=== PATIENT | female | born 1990 | race African-American/Black ===

== ENCOUNTER 2020-09-28 09:45 | Inpatient (IN) | payer OTHER ==
[2020-09-28 11:32] VITALS: BMI 30.1
[2020-09-28 12:10] LABS: CHLORIDE 99 mmol/L (98-107); SODIUM 139 mmol/L (136-145)
[2020-09-28 12:12] LABS: CALCIUM 7.9 mg/dL (8.5-10.1); GLUCOSE,RANDOM 107 mg/dL (74-106)
[2020-09-28 12:13] LABS: ALBUMIN 4.3 g/dl (3.4-5.0); ANION GAP 13 MMOL/L (8-16); BLOOD UREA NITROGEN 5.7 mg/dL (7-18); CO2 27 mmol/L (21-32)
[2020-09-28 12:17] LABS: BILIRUBIN,TOTAL 1.3 mg/dL (0.2-1); SGOT/AST 130 U/L (15-37); SGPT/ALT 143 U/L (13-61)
[2020-09-28 12:18] LABS: ALK PHOS 72 U/L (45-117); TOT PROT 7.7 g/dl (6.4-8.2)
[2020-09-28] MEDS ORDERED: MAG HYDROX/AL HYDROX/SIMETH 30 ML UNIT-DOSE CUP PO PRN (14:08)
[2020-09-28] MEDS ORDERED: BISMUTH SUBSALICYLATE 524 MG/30 ML PO PRN (14:08)
[2020-09-28] MEDS ORDERED: MAGNESIUM CITRATE 300 ML BOTTLE PO PRN (14:08)
[2020-09-28] MEDS ORDERED: IBUPROFEN 400 MG TABLET (FP) PO PRN (14:08)
[2020-09-28] MEDS ORDERED: NICOTINE 10 MG CARTRIDGE (INHALER) IH PRN (14:08)
[2020-09-28] MEDS ORDERED: MENTHOL/PHENOL 1 EACH UD MM PRN (14:08)
[2020-09-28] MEDS ORDERED: MAGNESIUM HYDROX 2400MG/30ML ORAL SUSPENSION 30 ML CUP PO PRN (14:08)
[2020-09-28] MEDS ORDERED: METHOCARBAMOL 500 MG TABLET PO PRN (14:08)
[2020-09-28 14:48] LABS: HEMATOCRIT 37.7 % (32.4-45.2); HEMOGLOBIN 12.5 GM/dL (10.7-15.3); MCH 24.6 pg (25.7-33.7); MEAN CELL VOLUME 74.7 fl (80-96); MEAN PLT VOLUME 9.3 fl (7.5-11.1); PLATELET COUNT 213 10^3/uL (134-434); RBC 5.05 M/mm3 (3.60-5.2); RDW 15.7 % (11.6-15.6); WHITE BLOOD COUNT 4.6 K/mm3 (4.0-10.0)
[2020-09-28] MEDS: POTASSIUM CHLORIDE TABS 20 MEQ TABLET.ER (FP) PO SCH ×2 (15:19→22:29)
[2020-09-28] MEDS: diazePAM 5 MG TABLET PO PRN (15:32)
[2020-09-28] MEDS ORDERED: hydrOXYzine PAMOATE 25 MG CAPSULE (FP) PO SCH (18:00)
[2020-09-28] MEDS: ONDANSETRON *ODT* 4 MG TABLET SL PRN (18:37)
[2020-09-28] MEDS: diazePAM 5 MG TABLET PO SCH ×2 (18:38→22:30)
[2020-09-28] MEDS: THIAMINE HCL 100 MG TABLET (FP) PO SCH (22:29)
[2020-09-28] MEDS: MELATONIN 5 MG TABLETS PO SCH (22:29)
[2020-09-29] MEDS: diazePAM 5 MG TABLET PO SCH ×4 (05:46→22:13)
[2020-09-29] MEDS: PRENATAL VITAMINS W/ FOLIC ACID TABLET (FP) PO SCH (10:13)
[2020-09-29 12:34] LABS: HEMATOCRIT 35.7 % (32.4-45.2); HEMOGLOBIN 11.8 GM/dL (10.7-15.3); MCHC 33.2 g/dl (32.0-36.0); MEAN CELL VOLUME 75.5 fl (80-96); MEAN PLT VOLUME 9.4 fl (7.5-11.1); PLATELET COUNT 182 10^3/uL (134-434); RBC 4.72 M/mm3 (3.60-5.2); RDW 15.6 % (11.6-15.6); WHITE BLOOD COUNT 2.5 K/mm3 (4.0-10.0)
[2020-09-29 12:40] LABS: ALBUMIN 3.7 g/dl (3.4-5.0); BLOOD UREA NITROGEN 4.2 mg/dL (7-18); CALCIUM 7.6 mg/dL (8.5-10.1)
[2020-09-29 12:45] LABS: BILIRUBIN,TOTAL 1.3 mg/dL (0.2-1); TOT PROT 6.8 g/dl (6.4-8.2)
[2020-09-29] MEDS: THIAMINE HCL 100 MG TABLET (FP) PO SCH (22:13)
[2020-09-29] MEDS: MELATONIN 5 MG TABLETS PO SCH (22:13)
[2020-09-30] MEDS: diazePAM 5 MG TABLET PO SCH ×3 (06:27→23:09)
[2020-09-30] MEDS: PRENATAL VITAMINS W/ FOLIC ACID TABLET (FP) PO SCH (10:05)
[2020-09-30] MEDS: diazePAM 5 MG TABLET PO PRN ×2 (10:06→20:51)
[2020-09-30] MEDS ORDERED: POTASSIUM CHLORIDE TABS 20 MEQ TABLET.ER (FP) PO ONE (12:35)
[2020-09-30] MEDS: hydrOXYzine PAMOATE 25 MG CAPSULE (FP) PO PRN (20:52)
[2020-09-30] MEDS: MELATONIN 5 MG TABLETS PO SCH (22:08)
[2020-09-30] MEDS: THIAMINE HCL 100 MG TABLET (FP) PO SCH (22:09)
[2020-10-01] MEDS: diazePAM 5 MG TABLET PO SCH ×2 (06:19→17:39)
[2020-10-01] MEDS: diazePAM 5 MG TABLET PO PRN (10:20)
[2020-10-01] MEDS: SERTRALINE HCL 50 MG TABLET (FP) PO SCH (10:20)
[2020-10-01] MEDS: PRENATAL VITAMINS W/ FOLIC ACID TABLET (FP) PO SCH (10:20)
[2020-10-01] MEDS ORDERED: MIRTAZAPINE 15 MG TABLET (FP) PO SCH (22:00)
[2020-10-01] MEDS: THIAMINE HCL 100 MG TABLET (FP) PO SCH (22:09)
[2020-10-01] MEDS: MELATONIN 5 MG TABLETS PO SCH (22:10)
[2020-10-01] MEDS: hydrOXYzine PAMOATE 25 MG CAPSULE (FP) PO PRN (22:11)
[2020-10-02] MEDS ORDERED: diazePAM 5 MG TABLET PO ONE (06:00)
[2020-10-02] MEDS: PRENATAL VITAMINS W/ FOLIC ACID TABLET (FP) PO SCH (09:55)
[2020-10-02] MEDS: SERTRALINE HCL 50 MG TABLET (FP) PO SCH (09:56)
[2020-10-02] MEDS: ONDANSETRON *ODT* 4 MG TABLET SL PRN (09:56)
[2020-10-02 12:54] VITALS: BP 118/83; PULSE 64; TEMP 96.4
== END 2020-10-02 14:25 | disposition other institution (70) | DRG 775 ==
LOC: YASAS 09:45 → Y3N 14:13
PROVIDERS: ADMIT Allergy & Immunology; ATTEND Allergy & Immunology
PROC: HZ2ZZZZ Detoxification Services for Substance Abuse Treatment (ICD-10-PCS; principal; 2020-09-28)
DX: F10.230 Alcohol dependence with withdrawal, uncomplicated (principal); F17.210 Nicotine dependence, cigarettes, uncomplicated; F41.9 Anxiety disorder, unspecified; F32.9 Major depressive disorder, single episode, unspecified; F43.10 Post-traumatic stress disorder, unspecified; R74.01 Elevation of levels of liver transaminase levels; Z62.810 Personal history of physical and sexual abuse in childhood; Z86.69 Personal history of other diseases of the nervous system and sense organs; Z56.0 Unemployment, unspecified; Z59.0 Homelessness
CPT/HCPCS: 36415; 70450-TC; 72125-TC; 73030-TC-LT-FY; 80053; 84702; 84703; 85027; 86780; 93005; 93010; C9803; Q0162; U0003; U0005

== ENCOUNTER 2020-10-02 14:29 | Inpatient (IN) | payer OTHER ==
[2020-10-02] MEDS ORDERED: MAGNESIUM HYDROX 2400MG/30ML ORAL SUSPENSION 30 ML CUP PO PRN (15:18)
[2020-10-02] MEDS ORDERED: MAGNESIUM CITRATE 300 ML BOTTLE PO PRN (15:18)
[2020-10-02] MEDS ORDERED: guaiFENesin 200 MG/10 ML 10 ML UNIT-DOSE CUPS PO PRN (15:18)
[2020-10-02] MEDS ORDERED: P-EPHED 60MG/TRIPROLIDI 2.5MG TABLET PO PRN (15:18)
[2020-10-02] MEDS ORDERED: LOPERAMIDE HCL 2 MG CAPSULE PO PRN (15:18)
[2020-10-02] MEDS ORDERED: ACETAMINOPHEN 325 MG TABLET (FP) PO PRN (15:18)
[2020-10-02] MEDS ORDERED: MENTHOL/PHENOL 1 EACH UD MM PRN (15:18)
[2020-10-02] MEDS ORDERED: MAG HYDROX/AL HYDROX/SIMETH 30 ML UNIT-DOSE CUP PO PRN (15:18)
[2020-10-02] MEDS: MELATONIN 5 MG TABLETS PO SCH (21:10)
[2020-10-02] MEDS: hydrOXYzine PAMOATE 25 MG CAPSULE (FP) PO PRN (21:10)
[2020-10-02] MEDS: THIAMINE HCL 100 MG TABLET (FP) PO SCH (21:10)
[2020-10-02] MEDS ORDERED: MIRTAZAPINE 15 MG TABLET (FP) PO SCH (22:00)
[2020-10-03] MEDS: hydrOXYzine PAMOATE 25 MG CAPSULE (FP) PO PRN (09:36)
[2020-10-03] MEDS: PRENATAL VITAMINS W/ FOLIC ACID TABLET (FP) PO SCH (09:36)
[2020-10-03] MEDS: NICOTINE 7 MG/24 HOURS TOPICAL PATCH TD SCH (09:37)
[2020-10-03] MEDS ORDERED: SERTRALINE HCL 50 MG TABLET (FP) PO SCH (10:00)
[2020-10-03] MEDS: GABAPENTIN 100 MG CAPSULE PO SCH (12:20)
[2020-10-03] MEDS: THIAMINE HCL 100 MG TABLET (FP) PO SCH (21:16)
[2020-10-03] MEDS: MIRTAZAPINE 30 MG TABLET PO SCH (21:16)
[2020-10-03] MEDS: MELATONIN 5 MG TABLETS PO SCH (21:16)
[2020-10-04] MEDS: PRENATAL VITAMINS W/ FOLIC ACID TABLET (FP) PO SCH (09:49)
[2020-10-04] MEDS: GABAPENTIN 100 MG CAPSULE PO SCH (09:49)
[2020-10-04] MEDS: hydrOXYzine PAMOATE 25 MG CAPSULE (FP) PO PRN (09:50)
[2020-10-04] MEDS: NICOTINE 7 MG/24 HOURS TOPICAL PATCH TD SCH (09:50)
[2020-10-04] MEDS: SERTRALINE HCL 50 MG TABLET (FP) PO SCH (09:50)
[2020-10-04] MEDS: MELATONIN 5 MG TABLETS PO SCH (21:18)
[2020-10-04] MEDS: MIRTAZAPINE 30 MG TABLET PO SCH (21:18)
[2020-10-04] MEDS: THIAMINE HCL 100 MG TABLET (FP) PO SCH (21:18)
[2020-10-05] MEDS: PRENATAL VITAMINS W/ FOLIC ACID TABLET (FP) PO SCH (09:47)
[2020-10-05] MEDS: SERTRALINE HCL 50 MG TABLET (FP) PO SCH (09:47)
[2020-10-05] MEDS: GABAPENTIN 100 MG CAPSULE PO SCH (09:47)
[2020-10-05] MEDS: NICOTINE 7 MG/24 HOURS TOPICAL PATCH TD SCH (09:48)
[2020-10-05 13:54] LABS: BASO % 1.3 % (0-2.0); EOS % 1.8 % (0-4.5); HEMATOCRIT 32.9 % (32.4-45.2); HEMOGLOBIN 10.8 GM/dL (10.7-15.3); LYMPH % 45.2 % (8-40); MCH 25.1 pg (25.7-33.7); MCHC 32.7 g/dl (32.0-36.0); MEAN CELL VOLUME 76.8 fl (80-96); MEAN PLT VOLUME 9.1 fl (7.5-11.1); MONO % 7.3 % (3.8-10.2); NEUT % 44.4 % (42.8-82.8); PLATELET COUNT 232 10^3/uL (134-434); RBC 4.28 M/mm3 (3.60-5.2); WHITE BLOOD COUNT 4.3 K/mm3 (4.0-10.0)
[2020-10-05 14:23] LABS: ALBUMIN 3.7 g/dl (3.4-5.0); BLOOD UREA NITROGEN 11.3 mg/dL (7-18)
[2020-10-05 14:26] LABS: CREATININE 0.9 mg/dL (0.55-1.3)
[2020-10-05 14:28] LABS: BILIRUBIN,TOTAL 0.9 mg/dL (0.2-1)
[2020-10-05 14:31] LABS: TOT PROT 6.9 g/dl (6.4-8.2)
[2020-10-05] MEDS: MIRTAZAPINE 30 MG TABLET PO SCH (21:45)
[2020-10-05] MEDS: THIAMINE HCL 100 MG TABLET (FP) PO SCH (21:45)
[2020-10-05] MEDS: MELATONIN 5 MG TABLETS PO SCH (21:45)
[2020-10-06] MEDS: GABAPENTIN 100 MG CAPSULE PO SCH (10:25)
[2020-10-06] MEDS: NICOTINE 7 MG/24 HOURS TOPICAL PATCH TD SCH (10:26)
[2020-10-06] MEDS: PRENATAL VITAMINS W/ FOLIC ACID TABLET (FP) PO SCH (10:26)
[2020-10-06] MEDS: SERTRALINE HCL 50 MG TABLET (FP) PO SCH (10:26)
[2020-10-06] MEDS: BACITRACIN 0.9 GM PACKET TP SCH (16:59)
[2020-10-06] MEDS: MIRTAZAPINE 30 MG TABLET PO SCH (21:59)
[2020-10-06] MEDS: THIAMINE HCL 100 MG TABLET (FP) PO SCH (21:59)
[2020-10-06] MEDS: MELATONIN 5 MG TABLETS PO SCH (22:00)
[2020-10-07] MEDS: PRENATAL VITAMINS W/ FOLIC ACID TABLET (FP) PO SCH (10:44)
[2020-10-07] MEDS: SERTRALINE HCL 50 MG TABLET (FP) PO SCH (10:44)
[2020-10-07] MEDS: GABAPENTIN 100 MG CAPSULE PO SCH (10:44)
[2020-10-07] MEDS: BACITRACIN 0.9 GM PACKET TP SCH (10:45)
[2020-10-07] MEDS: NICOTINE 7 MG/24 HOURS TOPICAL PATCH TD SCH (10:45)
[2020-10-07] MEDS: MELATONIN 5 MG TABLETS PO SCH (21:44)
[2020-10-07] MEDS: MIRTAZAPINE 30 MG TABLET PO SCH (21:44)
[2020-10-07] MEDS: THIAMINE HCL 100 MG TABLET (FP) PO SCH (21:44)
[2020-10-08] MEDS: GABAPENTIN 100 MG CAPSULE PO SCH (10:39)
[2020-10-08] MEDS: NICOTINE 7 MG/24 HOURS TOPICAL PATCH TD SCH (10:40)
[2020-10-08] MEDS: hydrOXYzine PAMOATE 25 MG CAPSULE (FP) PO PRN (10:40)
[2020-10-08] MEDS: PRENATAL VITAMINS W/ FOLIC ACID TABLET (FP) PO SCH (10:40)
[2020-10-08] MEDS: SERTRALINE HCL 50 MG TABLET (FP) PO SCH (10:40)
[2020-10-08] MEDS: BACITRACIN 0.9 GM PACKET TP SCH (10:41)
[2020-10-08] MEDS: MIRTAZAPINE 30 MG TABLET PO SCH (22:10)
[2020-10-08] MEDS: THIAMINE HCL 100 MG TABLET (FP) PO SCH (22:10)
[2020-10-08] MEDS: MELATONIN 5 MG TABLETS PO SCH (22:10)
[2020-10-09] MEDS: GABAPENTIN 100 MG CAPSULE PO SCH (10:57)
[2020-10-09] MEDS: BACITRACIN 0.9 GM PACKET TP SCH (10:57)
[2020-10-09] MEDS: SERTRALINE HCL 50 MG TABLET (FP) PO SCH (10:58)
[2020-10-09] MEDS: NICOTINE 7 MG/24 HOURS TOPICAL PATCH TD SCH (10:58)
[2020-10-09] MEDS: PRENATAL VITAMINS W/ FOLIC ACID TABLET (FP) PO SCH (10:58)
[2020-10-09] MEDS: hydrOXYzine PAMOATE 25 MG CAPSULE (FP) PO PRN ×2 (10:58→21:17)
[2020-10-09] MEDS: THIAMINE HCL 100 MG TABLET (FP) PO SCH (21:17)
[2020-10-09] MEDS: MELATONIN 5 MG TABLETS PO SCH (21:17)
[2020-10-09] MEDS: MIRTAZAPINE 30 MG TABLET PO SCH (21:17)
[2020-10-09] MEDS: IBUPROFEN 400 MG TABLET (FP) PO PRN (21:17)
[2020-10-10] MEDS: PRENATAL VITAMINS W/ FOLIC ACID TABLET (FP) PO SCH (09:41)
[2020-10-10] MEDS: hydrOXYzine PAMOATE 25 MG CAPSULE (FP) PO PRN ×2 (09:41→21:16)
[2020-10-10] MEDS: BACITRACIN 0.9 GM PACKET TP SCH (09:41)
[2020-10-10] MEDS: GABAPENTIN 100 MG CAPSULE PO SCH (09:41)
[2020-10-10] MEDS: SERTRALINE HCL 50 MG TABLET (FP) PO SCH (09:41)
[2020-10-10] MEDS: NICOTINE 7 MG/24 HOURS TOPICAL PATCH TD SCH (09:42)
[2020-10-10] MEDS: MIRTAZAPINE 30 MG TABLET PO SCH (21:15)
[2020-10-10] MEDS: MELATONIN 5 MG TABLETS PO SCH (21:15)
[2020-10-10] MEDS: THIAMINE HCL 100 MG TABLET (FP) PO SCH (21:15)
[2020-10-10] MEDS: IBUPROFEN 400 MG TABLET (FP) PO PRN (21:16)
[2020-10-11] MEDS: BACITRACIN 0.9 GM PACKET TP SCH (10:27)
[2020-10-11] MEDS: GABAPENTIN 100 MG CAPSULE PO SCH (10:27)
[2020-10-11] MEDS: PRENATAL VITAMINS W/ FOLIC ACID TABLET (FP) PO SCH (10:27)
[2020-10-11] MEDS: NICOTINE 7 MG/24 HOURS TOPICAL PATCH TD SCH (10:28)
[2020-10-11] MEDS: IBUPROFEN 400 MG TABLET (FP) PO PRN (10:28)
[2020-10-11] MEDS: SERTRALINE HCL 50 MG TABLET (FP) PO SCH (10:28)
[2020-10-11] MEDS: hydrOXYzine PAMOATE 25 MG CAPSULE (FP) PO PRN (10:28)
[2020-10-11] MEDS: THIAMINE HCL 100 MG TABLET (FP) PO SCH (21:10)
[2020-10-11] MEDS: MELATONIN 5 MG TABLETS PO SCH (21:10)
[2020-10-11] MEDS: MIRTAZAPINE 30 MG TABLET PO SCH (21:11)
[2020-10-12 08:02] VITALS: BP 119/84; PULSE 75; TEMP 95.3
[2020-10-12] MEDS: PRENATAL VITAMINS W/ FOLIC ACID TABLET (FP) PO SCH (10:33)
[2020-10-12] MEDS: SERTRALINE HCL 50 MG TABLET (FP) PO SCH (10:33)
[2020-10-12] MEDS: hydrOXYzine PAMOATE 25 MG CAPSULE (FP) PO PRN ×2 (10:33→21:42)
[2020-10-12] MEDS: BACITRACIN 0.9 GM PACKET TP SCH (10:33)
[2020-10-12] MEDS: GABAPENTIN 100 MG CAPSULE PO SCH (10:33)
[2020-10-12] MEDS: NICOTINE 7 MG/24 HOURS TOPICAL PATCH TD SCH (10:34)
[2020-10-12] MEDS: IBUPROFEN 400 MG TABLET (FP) PO PRN (21:42)
[2020-10-12] MEDS: THIAMINE HCL 100 MG TABLET (FP) PO SCH (21:42)
[2020-10-12] MEDS: MIRTAZAPINE 30 MG TABLET PO SCH (21:42)
[2020-10-12] MEDS: MELATONIN 5 MG TABLETS PO SCH (23:50)
[2020-10-13] MEDS: BACITRACIN 0.9 GM PACKET TP SCH (10:33)
[2020-10-13] MEDS: SERTRALINE HCL 50 MG TABLET (FP) PO SCH (10:33)
[2020-10-13] MEDS: PRENATAL VITAMINS W/ FOLIC ACID TABLET (FP) PO SCH (10:33)
[2020-10-13] MEDS: NICOTINE 7 MG/24 HOURS TOPICAL PATCH TD SCH (10:34)
[2020-10-13] MEDS: NICOTINE 10 MG CARTRIDGE (INHALER) IH PRN (10:34)
[2020-10-13] MEDS: GABAPENTIN 100 MG CAPSULE PO SCH (10:34)
[2020-10-13] MEDS: hydrOXYzine PAMOATE 25 MG CAPSULE (FP) PO PRN ×2 (11:05→21:27)
[2020-10-13] MEDS: MELATONIN 5 MG TABLETS PO SCH (21:27)
[2020-10-13] MEDS: MIRTAZAPINE 30 MG TABLET PO SCH (21:27)
[2020-10-13] MEDS: THIAMINE HCL 100 MG TABLET (FP) PO SCH (21:27)
[2020-10-14] MEDS: PRENATAL VITAMINS W/ FOLIC ACID TABLET (FP) PO SCH (10:17)
[2020-10-14] MEDS: BACITRACIN 0.9 GM PACKET TP SCH (10:17)
[2020-10-14] MEDS: NICOTINE 7 MG/24 HOURS TOPICAL PATCH TD SCH (10:18)
[2020-10-14] MEDS: SERTRALINE HCL 50 MG TABLET (FP) PO SCH (10:18)
[2020-10-14] MEDS: NICOTINE 10 MG CARTRIDGE (INHALER) IH PRN (10:18)
[2020-10-14] MEDS: GABAPENTIN 100 MG CAPSULE PO SCH (10:18)
[2020-10-14] MEDS: hydrOXYzine PAMOATE 25 MG CAPSULE (FP) PO PRN ×2 (10:19→21:44)
[2020-10-14] MEDS: MELATONIN 5 MG TABLETS PO SCH (21:43)
[2020-10-14] MEDS: THIAMINE HCL 100 MG TABLET (FP) PO SCH (21:43)
[2020-10-14] MEDS: MIRTAZAPINE 30 MG TABLET PO SCH (21:43)
[2020-10-14] MEDS: IBUPROFEN 400 MG TABLET (FP) PO PRN (21:45)
[2020-10-15] MEDS: BACITRACIN 0.9 GM PACKET TP SCH (10:06)
[2020-10-15] MEDS: NICOTINE 10 MG CARTRIDGE (INHALER) IH PRN ×2 (10:06→21:39)
[2020-10-15] MEDS: NICOTINE 7 MG/24 HOURS TOPICAL PATCH TD SCH (10:07)
[2020-10-15] MEDS: hydrOXYzine PAMOATE 25 MG CAPSULE (FP) PO PRN ×2 (10:07→21:39)
[2020-10-15] MEDS: PRENATAL VITAMINS W/ FOLIC ACID TABLET (FP) PO SCH (10:07)
[2020-10-15] MEDS: GABAPENTIN 100 MG CAPSULE PO SCH (10:07)
[2020-10-15] MEDS: SERTRALINE HCL 50 MG TABLET (FP) PO SCH (10:07)
[2020-10-15] MEDS: MELATONIN 5 MG TABLETS PO SCH (21:38)
[2020-10-15] MEDS: THIAMINE HCL 100 MG TABLET (FP) PO SCH (21:38)
[2020-10-15] MEDS: MIRTAZAPINE 30 MG TABLET PO SCH (21:38)
[2020-10-16] MEDS: SERTRALINE HCL 50 MG TABLET (FP) PO SCH (09:32)
[2020-10-16] MEDS: GABAPENTIN 100 MG CAPSULE PO SCH (09:32)
[2020-10-16] MEDS: PRENATAL VITAMINS W/ FOLIC ACID TABLET (FP) PO SCH (09:32)
[2020-10-16] MEDS: hydrOXYzine PAMOATE 25 MG CAPSULE (FP) PO PRN (09:32)
[2020-10-16] MEDS: BACITRACIN 0.9 GM PACKET TP SCH (09:33)
[2020-10-16] MEDS: NICOTINE 7 MG/24 HOURS TOPICAL PATCH TD SCH (09:33)
== END 2020-10-16 10:07 | disposition home or self-care (01) | DRG 772 ==
LOC: YASAS 14:29 → Y5N 14:39
PROVIDERS: ADMIT Allergy & Immunology; ATTEND Allergy & Immunology
PROC: HZ42ZZZ Group Counseling for Substance Abuse Treatment, Cognitive-Behavioral (ICD-10-PCS; principal; 2020-10-02)
DX: F10.20 Alcohol dependence, uncomplicated (principal); F17.210 Nicotine dependence, cigarettes, uncomplicated; F41.9 Anxiety disorder, unspecified; F32.9 Major depressive disorder, single episode, unspecified; F43.10 Post-traumatic stress disorder, unspecified; Z62.810 Personal history of physical and sexual abuse in childhood; Z86.69 Personal history of other diseases of the nervous system and sense organs; Z56.0 Unemployment, unspecified; Z59.0 Homelessness
CPT/HCPCS: 36415; 80053; 85025